=== PATIENT | female | born 1985 | race Two or more races ===

== ENCOUNTER 2018-12-29 23:50 | Emergency (ER) | payer SELFPAY ==
[~2018-12-29] VITALS: Ht 162.6 cm; Wt 66.2 kg
[2018-12-30 00:21] VITALS: BP 120/78
--- NOTE | 2018-12-30 00:54 | PHYS DOC ---
Past Medical History Past Medical History: No Pertinent History Past Surgical History: No Surgical History Alcohol Use: Occasionally Drug Use: None Adult General Chief Complaint Chief Complaint: ANKLE PROBLEM HPI HPI Patient is a 33 year old female who presents with right ankle pain. She sustained a hyperextension injury while walking down 2 steps while wearing sandals. This happened at a proximally 2100. Pain is worse on the outer aspect of her foot and ankle. She has been able to walk on this however with significant pain. There has been no head injury. No other trauma associated with the fall. She took Aleve for this without any significant pain relief. No prior history of foot or ankle injuries or surgery. Patient is uncertain as to whether she is .[] Review of Systems Review of Systems Constitutional: Denies fever or chills [] Eyes: Denies change in visual acuity, redness, or eye pain [] HENT: Denies nasal congestion or sore throat [] Respiratory: Denies cough or shortness of breath [] Cardiovascular: No chest pain or palpitations[] GI: Denies abdominal pain, nausea, vomiting, bloody stools or diarrhea [] : Denies dysuria or hematuria [] Musculoskeletal: Denies back pain, see history of present illness[] Integument: Denies rash or skin lesions [] Neurologic: Denies headache, focal weakness or sensory changes [] Endocrine: Denies polyuria or polydipsia [] All other systems were reviewed and found to be within normal limits, except as documented in this note. Current Medications Current Medications Current Medications Medications (Trade) Dose Ordered Sig/[facility] Start Time Stop Time Status Last Admin Dose Admin Acetaminophen (Tylenol) 500 mg 1X ONCE 12/30/18 01:00 12/30/18 01:01 DC 12/30/18 01:21 500 MG Allergies Allergies Allergies Coded Allergies Type Severity Reaction Last Updated Verified No Known Drug Allergies 12/30/18 No Physical Exam Physical Exam Constitutional: Well developed, well nourished, no acute distress, non-toxic appearance. [] HENT: Normocephalic, atraumatic, bilateral external ears normal, oropharynx moist, no oral exudates, nose normal. [] Eyes: PERRLA, EOMI, conjunctiva normal, no discharge. [] Neck: Normal range of motion, no tenderness, supple, no stridor. [] Cardiovascular:Heart rate regular rhythm, no murmur [] Lungs & Thorax: Bilateral breath sounds clear to auscultation [] Abdomen: Bowel sounds normal, soft, no tenderness, no masses, no pulsatile masses. [] Skin: Warm, dry, no erythema, no rash. [] Back: No tenderness, no CVA tenderness. [] Extremities: Tenderness along the lateral aspect of her right ankle, no cyanosis , no clubbing, ROM limited secondary to pain, no edema. No bruising. A joint above and a joined below were evaluated and were normal. [] Neurologic: Alert and oriented X 3, normal motor function, normal sensory function, no focal deficits noted. [] Psychologic: Affect normal, judgement normal, mood normal. [] Current Patient Data Vital Signs Vital Signs Date Time Temp Pulse Resp B/P (MAP) Pulse Ox O2 Delivery O2 Flow Rate FiO2 12/30/18 00:21 98.5 96 14 120/78 (92) 99 Room Air 98.5 Lab Values Laboratory Tests Test 12/30/18 01:16 12/30/18 01:17 Urine Color Yellow Urine Clarity Clear Urine pH 5.5 Urine Specific [place] 1.010 Urine Protein Negative mg/dL (NEG-TRACE) Urine Glucose (UA) Negative mg/dL (NEG) Urine Ketones (Stick) Negative mg/dL (NEG) Urine Blood Small (NEG) Urine Nitrite Negative (NEG) Urine Bilirubin Negative (NEG) Urine Urobilinogen Dipstick 0.2 mg/dL (0.2 mg/dL) Urine Leukocyte Esterase Moderate (NEG) Urine RBC Occ /HPF (0-2) Urine WBC 5-10 /HPF (0-4) Urine Squamous Epithelial Cells Mod /LPF Urine Bacteria Moderate /HPF (0-FEW) Urine Mucus Slight /LPF POC Urine HCG, Qualitative Hcg negative (Negative) EKG EKG [] Radiology/Procedures Radiology/Procedures Right ankle shows No fracture or dislocation[] Course & Med Decision Making Course & Med Decision Making Pertinent Labs and Imaging studies reviewed. (See chart for details) Medical decision making: There is no evidence of a fracture or dislocation. No evidence of neurologic or vascular compromise. ED course: Patient arrived, was placed in bed, and tolerated exam well. She was transported to and from x-ray with any complications. After the return the imaging findings, these were discussed with the patient who voiced understanding. In air splint was applied to provide additional stability. Patient was distally neurovascularly intact after the splint application. Patient was discharged in improved condition.[] Dragon Disclaimer Dragon Disclaimer This electronic medical record was generated, in whole or in part, using a voice recognition dictation system. Departure Departure Impression: Primary Impression: Right ankle sprain Disposition: HOME, SELF-CARE Condition: IMPROVED Referrals: NO PCP (PCP) Patient Instructions: Ankle Sprain, Ankle Sprain, Acute, with Phase I Rehab- [facility] Additional Instructions: Follow-up with your regular doctor in 2 days. If you do not have a regular doctor a list of local clinics will be provided for you. Return to the ER if worsening pain or any other concerns. Scripts Hydrocodone/Apap 5-325 (NORCO 5-325 TABLET) 1 Each Tablet 1-2 EACH PO PRN Q6HRS PRN for SEVERE PAIN, #15 as needed for pain Prov: LAUREN NASH DO 12/30/18 Meloxicam (MELOXICAM) 7.5 Mg Tablet 7.5 MG PO DAILY, #20 TAB Prov: LAUREN NASH DO 12/30/18 Problem Qualifiers Primary Impression: Right ankle sprain Encounter type: initial encounter Involved ligament of ankle: unspecified ligament Qualified Codes: S93.401A - Sprain of unspecified ligament of right ankle, initial encounter LAUREN NASH DO Dec 30, 2018 00:54
[2018-12-30] MEDS ORDERED: ACETAMINOPHEN 500 MG TABLET PO ONE (01:00)
[2018-12-30 01:24] LABS: BILIRUBIN,URINE NEGATIVE (NEG); CLARITY,URINE CLEAR; COLOR,URINE YELLOW; NITRITE,URINE NEGATIVE (NEG); PH,URINE 5.5; PROTEIN,URINE NEGATIVE (NEG-TRACE); UROBILINOGEN,URINE 0.2 mg/dL (0.2 mg/dL)
[2018-12-30 01:37] LABS: BACTERIA,URINE MODERATE /HPF (0-FEW); RBC,URINE OCC /HPF (0-2)
[2018-12-30 01:38] LABS: SQUAMOUS EPITHELIAL CELL,UR MOD /LPF
[2018-12-30] MEDS ORDERED: HYDR-3164 PO (01:51)
[2018-12-30] MEDS ORDERED: MELO7.5T29 PO (01:51)
--- NOTE | 2018-12-30 04:52 | RAD ---
Indication:pain over the lateral malleolus TECHNIQUE: 3 views of the right ankle COMPARISON:None FINDINGS/ impression: No acute fracture or dislocation. Ankle mortise is intact. No soft tissue abnormality. Electronically signed by: Julio Gavin DO (12/30/2018 4:49 AM) [id number]
== END 2018-12-30 02:10 | disposition home or self-care (01) ==
LOC: ER 23:50
DX: S93.491A Sprain of other ligament of right ankle, initial encounter (principal); W10.8XXA Fall (on) (from) other stairs and steps, initial encounter; Y93.01 Activity, walking, marching and hiking; Y92.89 Other specified places as the place of occurrence of the external cause; Y99.8 Other external cause status
CPT/HCPCS: 29515; 73610; 81001; 81025; 87086; 99284-25